=== PATIENT | female | born 2000 | race Caucasian/White ===

== ENCOUNTER 2023-03-07 13:06 | Outpatient (AMB) | payer OTHER, SELFPAY ==
--- NOTE | 2023-03-07 13:11 | A.OFFPC_ITS ---
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 Cutter Required: No Allergies No Known Allergies Allergy (Verified 03/07/23 13:21) Medication List - Last Reconciled 03/07/23 by MARION Santillan fluoxetine 10 mg PO DAILY Tobacco use date assessed: 03/07/23 Dental Screening Dental Screen Date: 03/07/23 Did you have a dental visit in the last 12 months?: Yes Did you have a dental problem in the last 6 months where you did not have access to dental care?: No Was dental information given to patient?: Patient has dentist HPI HPI Comments 2 History of Present Illness0 Details [age] new patient presents today to establish care past medical history significant for depression, anxiety. Patient currently follows with therapist weekly and follows with a psychiatrist Millie Liu in [place] worse currently stable on fluoxetine 10 mg daily. Patient states went to urgent care few weeks ago for lump on left neck posterior neck, pea sized. Patient reports she 1st noticed lump in neck in October however she just saw care and urgent care and was [place] recently denies any recent viral illnesses states she was tested for mono with urgent care which was negative. Patient states over hold feeling well and has a good appetite. Denies any chest pain,palpitations, shortness of breath and syncope. [facility] in [place]. Dr. Sibley. Few years ago. pap smear: 2021 [facility] Medical History (Updated 03/07/23 @ 13:37 by MARION Santillan) Fibroadenoma of right breast Constipation Family History (Updated 03/07/23 @ 13:25 by MARION Santillan) Mother Myocardial infarct Maternal Grandfather Myocardial infarct Father Diabetes Social History (Updated 03/07/23 @ 13:26 by MARION Santillan) Alcohol intake: current Alcohol intake frequency: a few times a month Alcohol type: beer and hard liquor Patient Tobacco Use Status: Never used Tobacco service: No Current occupational status: employed Current occupation: [employer] Employee [employer] Cognitive needs: No Hearing needs: No Vision needs: No Female Reproductive History Menstrual Age of Menarche: 11 Questionnaire PHQ-9 Over the last 2 weeks, how often have you been bothered by any of the following problems? 1. Little interest or pleasure in doing things: not at all 2. Feeling down, depressed, or hopeless: not at all 3. Trouble falling or staying asleep, or sleeping too much: not at all 4. Feeling tired or having little energy: not at all 5. Poor appetite or overeating: not at all 6. Feeling bad about yourself - or that you are a failure or have let yourself or your family down: not at all 7. Trouble concentrating on things, such as reading the newspaper or watching television: not at all 8. Moving or speaking so slowly that other people could have noticed. Or the opposite - being so fidgety or restless that you have been moving around a lot more than usual: not at all 9. Thoughts that you would be better off or of hurting yourself in some way: not at all Total score: 0 Depression Screening Interpretation: Negative Source: Developed by Drs. Monico Izaguirre, Ashtyn Avery, Tres Chavez and colleagues, with an educational isi from [employer]. AUDIT C Alcohol Use Questionnaire (AUDIT-C) 1. How often do you have a drink containing alcohol?: Monthly or less 2. How many drinks containing alcohol do you have on a typical day when you are drinking?: 1 or 2 3. How often do you have six or more drinks on one occasion?: Never Total Score: 1 NINA-7 AMB Questionnaire NINA-7 Date NINA - 7 assessed: 03/07/23 Feeling nervous, anxious, or on edge: 0 = Not at all Not being able to stop or control worryin = Not at all Worrying too much about different things: 0 = Not at all Trouble relaxin = Not at all Being so restless that it is hard to sit still: 0 = Not at all Becoming easily annoyed or irritable: 0 = Not at all Feeling afraid as if something awful might happen: 0 = Not at all Total NINA-7 score (0-4 normal; 5-9 mild; 10-14 moderate; 15-21 severe): 0 Source: Developed by Drs. Monico Izaguirre, Ashtyn Avery, Tres Chavez and colleagues, with an educational isi from [employer]. Review of Systems Const Denies chills, Denies fatigue, Denies fever(s) and Denies poor appetite Eyes Denies no additional complaints ENT Reports Normal hearing present Card Denies chest pain, Denies syncope, Denies rapid heart rate and Denies dyspnea Resp Denies cough and Denies dyspnea GI Denies change in stool character, Denies constipation, Denies diarrhea, Denies nausea and Denies vomiting Denies urinary frequency, Denies dysuria and Denies urinary urgency Skin/Breast Details: left neck lump Neuro Reports Normal hearing present, Denies confusion and Denies syncope Psych Denies confusion Endo Denies fatigue Physical exam (Primary Care) Vital Signs: Last Vital Signs Pulse 87 03/07/23 13:13 BP 102/68 03/07/23 13:13 Pulse Ox 99 03/07/23 13:13 Oxygen Delivery Method Room Air 03/07/23 13:13 BMI result Body Mass Index 21.8 Tobacco/Smoking Status: Tobacco use Status Tobacco use date assessed 03/07/23 03/07/23 13:16 Patient Tobacco Use Status Never used Tobacco 03/07/23 13:16 PHQ-9: PHQ-9 Score PHQ-9: Total score 0 03/07/23 13:16 Depression Screening Interpretation: Negative Const General: No confusion Orientation/consciousness: No confusion HENMT Head: Yes normocephalic and Yes atraumatic Head images: 2 1. Semi firm mobile approximately 5mm nodule left posterior neck Ears: external ears normal and TM's normal bilaterally General nose exam: Normal external nose present and Normal nasal mucous membranes and turbinates present Face and sinus: Yes normal facial exam and Yes sinuses nontender Mouth: moist mucous membranes Throat: Yes tonsils normal Eyes Conjunctivae: conjunctivae normal Sclerae: sclerae normal Pupils: Equal, round and reactive pupils present and Pupils normal by confrontation EOM: EOMs intact bilaterally Direct Ophthalmoscopy: normal light reflex Neck Neck: Yes no lymphadenopathy and Yes supple Thyroid: Thyroid normal Chest Chest palpation & inspection: normal inspection of the chest Resp Effort & Inspection: normal respiratory effort Auscultation: clear to auscultation bilaterally, no crackles, no rhonchi and no wheezes Cardio Rate: regular rate Rhythm: regular rhythm Peripheral pulses: radial pulses present and dorsalis pedis present GI Inspection: Yes normal to inspection Palpation (GI): Soft to palpation, nontender and No hepatosplenomegaly present Auscultation: normoactive bowel sounds Skin General skin exam: no rashes or lesions noted Neuro General: No confusion Cranial nerves: Yes Equal, round and reactive pupils present and Yes Normal hearing present Cognition (Neuro): normal cognition Gait exam (Neuro): Normal gait present Motor exam (neuro): 5/5 motor strength present throughout Deep tendon reflexes (DTR's): Right brachioradialis reflex intensity grade: 2+, Left brachioradialis reflex intensity grade: 2+, Right patellar reflex intensity grade: 2+ and Left patellar reflex intensity grade: 2+ Extrem General: No edema Assessment and Plan Assessment & Plan (1) Enlarged lymph node in neck: Code(s): R59.0 - Localized enlarged lymph nodes Plan: Head and neck ultrasound ordered to further evaluate. Will call with ultrasound results. (2) Anxiety: Code(s): F41.9 - Anxiety disorder, unspecified Plan: Continue on fluoxetine 10 mg daily and continue follow with therapist and psychiatrist. (3) Depression: Code(s): F32.A - Depression, unspecified Plan: Continue on fluoxetine. Continue to follow-up with therapist and psychiatrist. Plan Follow up in 1 year for physical exam or sooner if needed. Orders: Orders 2 Comprehensive [place]. Panel Fast Today F41.9 - Anxiety disorder, unspecified Complete Blood Count Auto Diff Today Z13.0 - Encounter for screening for diseases of the blood and blood-forming organs and certain disorders involving the immune mechanism TSH reflex Free T4 Today F41.9 - Anxiety disorder, unspecified US soft tiss head and/or neck Today R59.0 - Localized enlarged lymph nodes Coding Level of Care Code New Pt Prev Care 18-39yr([id number] Diagnoses Enlarged lymph node in neck R59.0 Anxiety F41.9 Depression F32.A
[2023-03-07 13:13] VITALS: BP 102/68; PULSE 87; O2SAT 99; BMI 21.8
== END 2023-03-07 13:38 | disposition home or self-care (01) ==
PROVIDERS: PCP Nurse Practitioner Family; Visit Provider Nurse Practitioner Family
DX: Z00.00 Encounter for general adult medical examination without abnormal findings (principal); R59.0 Localized enlarged lymph nodes; F41.9 Anxiety disorder, unspecified; F32.A Depression, unspecified
CPT/HCPCS: 99385

== ENCOUNTER 2023-03-16 10:24 | Outpatient (REF) | payer OTHER, SELFPAY ==
--- NOTE | ~2023-03-16 | US_ITS ---
EXAMINATION: US SOFT TISSUE NECK CLINICAL INFORMATION: Localized enlarged lymph nodes COMPARISON: None available. TECHNIQUE: Ultrasound of the neck soft tissues in region of concern is performed with high frequency last-scale imaging and color Doppler. FINDINGS: A few lymph nodes of normal size and echotexture are detected in the region of palpable concern in the posterior left neck . These lymph nodes have short axis measurements of 0.4 cm and 0.2 cm. The long axis to short axis ratios are normal (i.e., >2). There are no suspicious-appearing lymph nodes in the examined tissues. No soft tissue mass, fluid collection or edema. US/US soft tiss head and/or neck IMPRESSION: A few lymph nodes of normal size and echotexture are detected in the posterior left neck.
== END 2023-03-16 10:25 | disposition home or self-care (01) ==
LOC: HO.HMGCX 10:24
PROVIDERS: PCP Nurse Practitioner Family; Visit Provider Nurse Practitioner Family
DX: R59.0 Localized enlarged lymph nodes (principal)
CPT/HCPCS: 76536

== ENCOUNTER 2023-03-19 10:18 | Outpatient (REF) | payer OTHER, SELFPAY ==
[2023-03-19 10:39] LABS: MANUAL DIFF FLAG NO
[2023-03-19 11:09] LABS: Basophils Absolute Auto 0.1 X10*3/uL (0.0-0.2); Basophils Percent Auto 1.3 % (0-2); Eosinophils Absolute Auto 0.2 X10*3/uL (0.0-0.4); Eosinophils Percent Auto 3.7 % (0-4); Hematocrit 43.9 % (37.0-47.0); Hemoglobin 14.4 g/dl (12.0-16.0); Imm Gran Abs Auto 0.01 X10*3/uL (0.00-0.03); Imm Gran Pct Auto 0.2 % (0.0-0.4); Lymphocytes Absolute Auto 1.4 X10*3/uL (1.2-4.9); Lymphocytes Percent Auto 30.8 % (20-40); Mean Corpuscular HGB Conc 32.8 g/dl (31.0-35.0); Mean Corpuscular Hemoglobin 29.5 pg (27.0-33.0); Mean Platelet Volume 10.3 fL (9.4-12.3); Monocytes Absolute Auto 0.3 X10*3/uL (0.1-1.2); Monocytes Percent Auto 6.7 % (2-11); Neutrophils Absolute Auto 2.6 x10*3/uL (2.0-8.3); Neutrophils Percent Auto 57.3 % (45-73); Platelet Count 268 X10*3/uL (160-400); Red Blood Count 4.88 X10*6/uL (4.20-5.50); Red Cell Distribution Width 12.2 % (11.0-16.0); White Blood Count 4.6 X10*3/uL (4.8-10.8)
[2023-03-19 11:34] LABS: Alanine Aminotransferase 10 U/L (0-31); Albumin Level 4.8 g/dL (3.5-5.0); Alkaline Phosphatase 49 U/L (39-117); Anion Gap 15 (12-20); Aspartate Amino Transferase 14 U/L (5-31); Bilirubin Total 0.5 mg/dL (0.0-1.0); Blood Urea Nitrogen 9 mg/dL (9-16); Calcium 9.7 mg/dL (8.4-10.2); Carbon Dioxide 22 mmol/L (22-29); Chloride 108 mmol/L (96-108); Estimated Glomerular Filt Rate > 60; Glucose Fasting 97 mg/dL (60-99); Potassium 4.2 mmol/L (3.3-5.1); Sodium 141 mmol/L (135-145); Total Protein 7.9 g/dL (6.5-8.0)
[2023-03-19 11:49] LABS: TSH reflex Free T4 1.11 uIU/mL (0.32-4.0)
== END 2023-03-19 10:19 | disposition home or self-care (01) ==
LOC: HO.LAB 10:18
PROVIDERS: PCP Nurse Practitioner Family; Visit Provider Nurse Practitioner Family
DX: F41.9 Anxiety disorder, unspecified (principal); Z13.0 Encounter for screening for diseases of the blood and blood-forming organs and certain disorders involving the immune mechanism; R59.0 Localized enlarged lymph nodes
CPT/HCPCS: 36415; 80053; 84443; 85025